=== PATIENT | female | born 1990 | race Caucasian/White ===

== ENCOUNTER 2019-04-20 21:22 | Emergency (ER) | payer OTHER ==
--- NOTE | 2019-04-20 22:35 | ED Physician Documentation ---
PD HPI UPPER EXT INJURY - Stated complaint Stated Complaint: RT FING LAC/INJ - Chief complaint Chief Complaint: Laceration - History obtained from History obtained from: Patient - History of Present Illness Location: Right, Hand Type of injury: Laceration Where injury occurred: Home Timing - onset: Enter time (20:50) Timing - details: Abrupt onset Associated symptoms: Numbness Contributing factors: No: Anticoagulated, Work related Recently seen: Not recently seen - Additonal information Additional information: patient is right-hand dominant. tonight she was cleaning a drinking glass when it broke, sustained lacerations to her right pointer and middle fingers. UTD on tetanus Review of Systems Skin: reports: Laceration (s) Musculoskeletal: reports: Extremity pain Neurologic: reports: Numbness. denies: Focal weakness PD PAST MEDICAL HISTORY - Past Medical History Past Medical History: No Cardiovascular: None Respiratory: None Neuro: None Endocrine/Autoimmune: None GI: None OUTPATIENT FACILITY PHYSICAL THERAPIST: None : None HEENT: None Psych: None Musculoskeletal: None Derm: None - Past Surgical History Past Surgical History: No - Allergies Allergies/Adverse Reactions: Allergies Allergy/AdvReac Type Severity Reaction Status Date / Time No Known Drug Allergies Allergy Verified 04/20/19 23:18 - Social History Does the pt smoke?: No Smoking Status: Never smoker Does the pt drink ETOH?: Yes Does the pt have substance abuse?: No - Immunizations Immunizations are current?: Yes PD ED PE NORMAL - Vitals Vital signs reviewed: Yes - General General: Alert and oriented X 3, No acute distress, Well developed/nourished - Neuro Neuro: No motor deficit (full flexion and extension of pointer and middle right fingers, including with isolation of mcp, dip, pip joints (flexion)) PD ED PE EXPANDED - Extremities Extremities: Other (anesthesia of right second digit medial aspect only, from PIP joint to tip) SHANNON UE/Hands Visual: 1 - laceration (2 cm) 2 - laceration (base of finger) 3 - laceration (1 cm) Results - Vitals Vitals: Oxygen O2 Source Room air Procedures - Laceration (location) Finger right Length in cm: 5.5 (total length of three lacerations) Wound type: Linear, Curved Neurovascular status: Motor intact, Vascular intact Tendon involvement: Tendon intact Anesthesia: Lidocaine 1% Wound Preparation: Chlorhexadine, Irrigated copiously NS, Wound explored. No: FB identified Skin layer closure: Nylon, Interrupted, Running, Size #-0 - enter number (4-0) Other: Patient tolerated well, No complications, Dressing applied, Tetanus UTD Complexity: Simple PD MEDICAL DECISION MAKING - ED course Complexity details: considered differential, d/w patient ED course: d/w Dr. Plata regarding sensation loss right second digit medial (ulnar) aspect only from pip joint to tip (most of tip has LTS intact absent the medial-most aspect). he opines repair can proceed in ED at this time, but recommends instruct patient to f/u with hand surgeon. Departure - Departure Disposition: 01 Home, Self Care Clinical Impression: Laceration Condition: Good Instructions: ED Laceration Hand Follow-Up: SPENCER PRECIADO MD [Primary Care Provider] - (follow up in 2 days for wound check and 8-10 days for suture removal) Discharge Date/Time: 04/21/19 01:12
[2019-04-20] MEDS ORDERED: LIDOCAINE 1% 2 ML VIAL SUBQ STA (23:15)
[2019-04-21] MEDS ORDERED: LIDOCAINE 1% 2 ML VIAL ONE (00:11)
[2019-04-21] MEDS ORDERED: BACITRACIN ZINC OINT 1 PACKET TOP ONE (00:34)
[2019-04-21 01:12] VITALS: BP 122/66
--- NOTE | 2019-04-23 09:47 | MISCELLANEOUS PROVIDER NOTE ---
Miscellaneous Provider Note - - Note: Called with question by Dr. Kaiser. Discussed patient's hand injury and he notes no concern for significant vascular compromise of digits. He notes no significant concern for significant tendinous injury. He inquires regarding partial loss of light touch sensation to one side of digit. We discussed that there is possible digital nerve injury. Given no significant evidence of compromise from vascular standpoint- suggested debridement, irrigation, closure. Indicated that patient may benefit from exploration and possible repair (if possible or indicated) by hand specialist. Importance of timeliness was indicated. Advised to call with additional questions or if I may be of further assistance. Also offered to help coordinate further care if patient desires- and may call our office to facilitate. Asked that above be communicated to patient. Dr. Kaiser notes agreement with plan as discussed.
== END 2019-04-21 01:12 | disposition home or self-care (01) ==
LOC: ED 21:22
DX: S61.210A Laceration without foreign body of right index finger without damage to nail, initial encounter (principal); S61.212A Laceration without foreign body of right middle finger without damage to nail, initial encounter; W25.XXXA Contact with sharp glass, initial encounter; Y93.G1 Activity, food preparation and clean up; Y92.009 Unspecified place in unspecified non-institutional (private) residence as the place of occurrence of the external cause
CPT/HCPCS: 12002; 99281; 99282; A9270

== ENCOUNTER 2021-04-04 08:00 | Outpatient (CLI) | payer OTHER | END 2021-04-04 23:59 | LOC: LAB.N 08:00 | PROVIDERS: ATTEND Family Medicine | DX: U07.1 COVID-19 (principal) ==